=== PATIENT | male | born 1960 | race Caucasian/White ===

== ENCOUNTER 2023-10-12 21:54 | Emergency (ER) | payer OTHER, SELFPAY ==
[2023-10-12 22:03] VITALS: BP 141/88
[2023-10-12 22:23] LABS: % Basophils 0.6 % (0-2); % Eosinophils 0.6 % (0-6); % Immature Granulocytes 0.2 % (0-0.5); % Lymphocytes 10.8 % (20.5-51.1); % Monocytes 8.6 % (1.7-9.3); % Neutrophils 79.2 % (42.2-75.2); Absolute Lymphocytes 0.7 10^3/uL (1.2-3.4); Absolute Monocytes 0.5 10^3/uL (0.1-0.6); Hematocrit 35.8 % (39.0-52.0); Hemoglobin 12.9 g/dL (13.0-18.0); Mean Corpuscular Hgb 31.6 pg (27.0-31.0); Mean Corpuscular Volume 87.7 fL (80.0-94.0); Mean Platelet Volume 10.6 fL (7.4-10.4); Nucleated Red Blood Cells % 0 % (-); Platelet Count 156 10^3/uL (130-400); Red Blood Cell Count 4.08 10^6/uL (4.70-6.10); Red Cell Dist. Width 13.5 % (11.5-14.5); White Blood Cell Count 6.3 10^3/uL (4.8-10.8)
[2023-10-12 22:36] LABS: Urine Albumin Negative (Neg - Trace); Urine Bilirubin Negative (Negative); Urine Character Clear (Clear); Urine Color Straw; Urine Glucose Negative (Negative); Urine Ketone Negative (Negative); Urine Leukocyte Negative (Negative); Urine Nitrite Negative (Negative); Urine Occult Blood Negative (Negative); Urine Urobilinogen Negative (Neg - 1+)
[2023-10-12 22:41] LABS: ALT (SGPT) 14 U/L (0-50); AST (SGOT) 28 U/L (17-59); Albumin 4.6 g/dl (3.5-5.0); Alkaline Phosphatase 76 U/L (38-126); Blood Urea Nitrogen 17 mg/dl (9-20); Calcium 9.9 mg/dl (8.4-10.2); Carbon Dioxide 29 mmol/L (22-30); Chloride 96 mmol/L (98-107); Glucose 91 mg/dl (70-99); Lipase 61 U/L (23-300); Potassium 4.7 mmol/L (3.5-5.1); Sodium 133 mmol/L (135-145); Total Bilirubin 0.9 mg/dl (0.2-1.3); Total Protein 6.8 g/dl (6.3-8.2); eGFR > 60.00
--- NOTE | 2023-10-13 00:20 | ED.GENMED ---
History of Present Illness
General
Chief Complaint: Abdominal Pain
Source: patient
Exam Limitations: none
Time Seen by Provider: 10/12/23 23:52
Nursing documentation reviewed up to this point in time: agreed with
Travel History
Have you had any contact with someone who has COVID-19?: No
Do you have any symptoms of coronavirus? Fever > 100 degrees, chills, cough, shortness of breath, sore throat, loss of taste or smell, muscle aches, or headache?: No
History of Present Illness
History of Present Illness:
Patient is a 62-year-old male with history of kidney failure due to polycystic kidney disease kidney transplant presents to the ER for evaluation of abdominal pain. Patient started with abdominal pain on 4 PM across his beltline. He reports was
constant pain he could not stand up with the pain or walk with the pain. When he came to the ER he still had pain however presently pain is resolved. He is asymptomatic at this time. He had no associated nausea vomiting back pain. He denies any
urinary frequency urgency or dysuria. He had no fevers.
He had a last bowel movement yesterday .
Past History
Past History
ED Past Medical History: Other (polycystic kidney disease)
Social History
Tobacco: Non-smoker
Personal:
Review of Systems
Review of Systems
Allergies reviewed?: Yes
Other source history: family
All Other Systems: ROS reviewed and negative except as documented in HPI and ROS
Constitutional: Reports no symptoms; Denies fever, fatigue or chills
EENT: Reports no symptoms
Respiratory: Reports no symptoms
Cardiac: Reports no symptoms
ABD/GI: Reports abdominal pain (abdominal pain now resolved ); Denies nausea, vomiting or diarrhea
Skin: Reports no symptoms
Neurological: Reports no symptoms
Psychiatric: Reports no symptoms
Phy Exam
General Physical Exam
General Presentation: no apparent distress
General age: appears stated age
General Skin: warm and dry
General Habitus: normal
General Mental: alert
General Hydration: appears well hydrated
Gastrointestinal Exam
Gastrointestinal Exam: normal bowel sounds, non tender and soft
Neurological Exam
Neurological Exam: alert and oriented x3
Musculoskeletal Exam
Musculoskeletal Exam: full ROM
Skin Exam
Skin Exam: normal color and warm/dry
Psychiatric Exam
Psychiatric Exam: normal mood/affect
Course
Orders/Labs/Results
Orders:
Orders
10/12/23 22:13
Complete Blood Count/With Diff Urgent
Comprehensive Metabolic Panel Urgent
Lipase Urgent
Urinalysis Reflex To Culture Urgent
Date Specimen was Collected: 10/12/23
Time Specimen was Collected: 22:06
10/13/23 00:39
CT Abd/pel Without Iv Or Oral Urgent
Comment:
Reason For Exam: abd pain
Abnormal Lab Results
10/12/23
22:13
RBC 4.08 L 10^6/uL
(4.70-6.10)
Hgb 12.9 L g/dL
(13.0-18.0)
Hct 35.8 L %
(39.0-52.0)
MCH 31.6 H pg
(27.0-31.0)
MPV 10.6 H fL
(7.4-10.4)
Absolute Lymphs (auto) 0.7 L 10^3/uL
(1.2-3.4)
Neutrophils % 79.2 H %
(42.2-75.2)
Lymphocytes % 10.8 L %
(20.5-51.1)
Sodium 133 L mmol/L
(135-145)
Chloride 96 L mmol/L
(98-107)
10/12/23 22:13
10/12/23 22:13
Vital Signs
Initial and Last Documented VS:
Initial Vital Signs
Temp Pulse Resp BP Pulse Ox
98.4 F 59 18 141/88 100
10/12/23 22:03 10/12/23 22:03 10/12/23 22:03 10/12/23 22:03 10/12/23 22:03
Last Documented Vital Signs
Temp Pulse Resp BP Pulse Ox
97.4 F 54 18 147/81 100
10/13/23 02:24 10/13/23 02:24 10/13/23 02:24 10/13/23 02:24 10/13/23 02:24
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
Hydro Plant Operator consulted with physician?: Yes
Name of Physician Consulted: Mayur
MDM/Problems Addressed
Differential Diagnosis Includes:
Appendicitis less likely pyelonephritis, diverticulitis renal colic
MDM/Problems Addressed:
As documented patient is a 62-year-old male with history of renal transplant presented to the ER for abdominal pain. Prior to arrival in the late afternoon patient developed lower abdominal pain across his beltline which was constant for several
hours he had no associated back pain nausea vomiting urinary symptoms fever or chills. Patient is asymptomatic now however will check CAT scan for possible passed stone. He is in no acute distress vital signs are stable labs unremarkable. case
reviewed with DR Powers.
0235: CAT scan unremarkable no bowel obstruction or perforation or inflammatory process appendix not visualized but no inflammatory changes there is right lower quadrant transplant no calculi hydro or signs of pyelonephritis. Patient zita
asymptomatic in no acute distress on reexam abdomen soft remains nontender will discharge home, labs unremarkable renal transient
Chronic conditions affecting care:
Renal transplant
*Critical Care Note
Total Time (30-74mins, 75-104mins- exclusive of procedures): Not Applicable
ED Attending Note
-
Portions of this chart may have been created with voice recognition software.� Occasional wrong word or��sound alike� substitutions may have occurred due to the inherent limitations of voice recognition software.
Discharge Plan
Departure
Patient Disposition: Home (Routine Discharge)
Date of Disposition: 10/13/23
Time of Disposition: 02:31
Patient with high blood pressure during this ER visit?: Yes
Condition: Fair
Covid-19: Not Applicable
Discharge Problem:
Abdominal pain
Instructions: Abdominal Pain
Prescriptions:
No Action
atorvastatin 10 MG tablet
20 mg PO QPM
hydrochlorothiazide 25 MG tablet
25 mg PO DAILY
lisinopril 40 MG tablet
40 mg PO DAILY
paricalcitol 1 MCG capsule
1 mcg PO MUST ENTER TIMES
Patient Comments:
every other day
prednisone 20 MG tablet
20 mg PO BID Qty: 14 0RF
oxycodone-acetaminophen 5 MG/325 MG tablet
1 tab PO Q4HPRN PRN (Reason: pain) Qty: 20 0RF
Referrals:
Armando Jeronimo MD [Family Provider] -
Activity Restrictions/Additional Instructions:
As discussed your blood work was unremarkable and there were no acute findings on CAT scan. Return if any worsening of symptoms. Follow-up with your family doctor in the next several days.
Interventions
Interventions:
*Risk Screen - Suicide Last Done: 10/12/23 23:48
*General Assessment Last Done: 10/12/23 23:48
*Neglect/Abuse Screening Last Done: 10/12/23 23:48
ED- Fall Risk Assessment Last Done: 10/12/23 23:48
HX-Ujeefj-Odwptobzbv Assessment Last Done: 10/12/23 23:48
Discharge Date and Time
Print Language: OCCITAN
[2023-10-13 02:24] VITALS: BP 147/81
== END 2023-10-13 02:38 | disposition home or self-care (01) ==
LOC: EMR 21:54
PROVIDERS: Student in an Organized Health Care Education/Training Program; EMERGENCY PHYSICIAN Emergency Medicine; FAMILY PHYSICIAN Family Medicine
DX: R10.9 Unspecified abdominal pain (principal); Z94.0 Kidney transplant status
CPT/HCPCS: 99284; 74176; 80053; 81003; 83690; 85025